=== PATIENT | male | born 1950 | race Caucasian/White ===

== ENCOUNTER → 2016-06-04 | Outpatient (REF) ==
[~2016-06-04] MED LIST: CEPHALEXIN500 M1 PO; NO HOME MEDICATIONS; PERCOCET 325 MG1 TA2 PO; SEPTRA DS 8001 TAB PO; ULTRAM 50MG TAB50 MG PO; ZESTRIL 5MG5 MG PO
== END ==
LOC: ZLAB.WCH 11:57
DX: Z01.89 Encounter for other specified special examinations (principal)

== ENCOUNTER → 2016-07-08 | Outpatient (REF) | LOC: ZLAB.WCH 15:36 | DX: Z01.89 Encounter for other specified special examinations (principal) ==

== ENCOUNTER → 2016-07-12 | Outpatient (CLI) | payer MEDICARE | LOC: SUN.DIA 07-06 08:52 | DX: E11.65 Type 2 diabetes mellitus with hyperglycemia (principal); Z68.25 Body mass index [BMI] 25.0-25.9, adult; Z71.3 Dietary counseling and surveillance; E78.5 Hyperlipidemia, unspecified; I10 Essential (primary) hypertension | CPT/HCPCS: G0108 ==

== ENCOUNTER → 2016-07-13 | Outpatient (CLI) | payer MEDICARE | LOC: SUN.DIA 12:18 | DX: E11.65 Type 2 diabetes mellitus with hyperglycemia (principal); Z79.84 Long term (current) use of oral hypoglycemic drugs; Z71.3 Dietary counseling and surveillance; E78.5 Hyperlipidemia, unspecified; I10 Essential (primary) hypertension | CPT/HCPCS: G0109 ==

== ENCOUNTER → 2016-07-20 | Outpatient (CLI) | payer MEDICARE | LOC: SUN.DIA 11:13 | DX: E11.65 Type 2 diabetes mellitus with hyperglycemia (principal); Z79.84 Long term (current) use of oral hypoglycemic drugs; Z71.3 Dietary counseling and surveillance; E78.5 Hyperlipidemia, unspecified; I10 Essential (primary) hypertension | CPT/HCPCS: G0109 ==

== ENCOUNTER → 2016-07-27 | Outpatient (CLI) | payer MEDICARE | LOC: SUN.DIA 09:16 | DX: E11.65 Type 2 diabetes mellitus with hyperglycemia (principal); Z79.84 Long term (current) use of oral hypoglycemic drugs; Z71.3 Dietary counseling and surveillance; E78.5 Hyperlipidemia, unspecified; I10 Essential (primary) hypertension | CPT/HCPCS: G0109 ==

== ENCOUNTER → 2016-08-20 | Outpatient (REF) | LOC: ZLAB.WCH 10:59 | DX: Z01.89 Encounter for other specified special examinations (principal) ==

== ENCOUNTER → 2016-08-24 | Outpatient (CLI) | payer MEDICARE | LOC: SUN.DIA 11:38 | DX: E11.65 Type 2 diabetes mellitus with hyperglycemia (principal); Z79.84 Long term (current) use of oral hypoglycemic drugs; Z68.25 Body mass index [BMI] 25.0-25.9, adult; Z71.3 Dietary counseling and surveillance; E78.5 Hyperlipidemia, unspecified; I10 Essential (primary) hypertension; F17.210 Nicotine dependence, cigarettes, uncomplicated ==

== ENCOUNTER → 2017-12-15 | Outpatient (REF) | LOC: ZLAB.WCH 08:37 | DX: Z01.89 Encounter for other specified special examinations (principal) ==

== ENCOUNTER → 2018-03-15 | Outpatient (REF) | LOC: ZLAB.WCH 18:03 | DX: Z01.89 Encounter for other specified special examinations (principal) ==

== ENCOUNTER → 2018-09-14 | Outpatient (REF) | LOC: ZLAB.WCH 13:51 | DX: Z01.89 Encounter for other specified special examinations (principal) ==